=== PATIENT | female | born 1970 | race Caucasian/White ===

== ENCOUNTER 2023-12-21 14:12 | Emergency (ER) | payer OTHER, SELFPAY ==
[2023-12-21 14:43] VITALS: BP 130/79
--- NOTE | 2023-12-21 14:43 | ED.SKININJ ---
HPI-Injury
<Meghna Rodriguez BROTHEL KEEPER - Last Filed: 12/21/23 14:47>
General
Chief Complaint: Skin Surface Trauma
Time Seen by Provider: 12/21/23 15:52
<Bill Lea MD, Resident - Last Filed: 12/21/23 22:40>
General
Source: patient
Exam Limitations: none
Nursing documentation reviewed up to this point in time: agreed with
History of Present Illness-Injury
Is this injury a work related problem?: No
Is pt an associate of [facility]?: No
Initial Injury comments:
~2.7cm x 0.6cm - Retained Foreign Body (Clear Piece Of Glass)
Socializing at Neighbors backyard/Patio, while drinking/holding from a cup of glass
Complex Asymmetric Wound Margins With Minimal Variety in Depth
Ten(#10) - Simple Interrupted Sutures were placed
With - Two Monofilament-Permanent - Five'O Black Nylons Sutures
ED Provider Triage
<Meghna Rodriguez, BROTHEL KEEPER - Last Filed: 12/21/23 14:47>
-
Patient seen by provider in Triage?: Seen in Triage
Attestation: A medical screening examination has been initiated by a qualified medical provider. Based on the assessment performed at this time, it has been determined that an emergent medical condition may exist and the patient has been informed
that further medical evaluation and possible additional diagnostic testing may be needed.
HPI: 53-year-old female fell on her friend's back patio an hour ago, laceration to right hand and questionable foreign body in the wound. Unsure of last tetanus immunization
GENERAL: Alert , in no apparent distress
EYE: No visual abnormalities.
LUNGS: No acute respiratory distress
NEUROLOGICAL: Alert and oriented
SKIN: laceration proximal R palm. No visible changes.
MUSCULOSKELETAL: Full ROM hand and finger. Moving extremities normally
PSYCH: Normal and appropriate interaction.
This is a medical evaluation conducted in person to initiate diagnostic evaluation and provide initial therapeutics. Please see further documentation by the treating clinician.
Phy Exam
<Bill Lea MD, Resident - Last Filed: 12/21/23 22:40>
General Physical Exam
General Presentation: well appearing and moderate distress
General age: appears stated age
General Skin: mottled
General Habitus: normal
General Mental: alert
General Hydration: appears well hydrated
Neurological Exam
Neurological Exam: oriented x3, no motor deficits, no sensory deficits, speech normal and other (NO loss Motor or Sensory )
Musculoskeletal Exam
Musculoskeletal Exam: full ROM and neuro vasc intact
Skin Exam
Skin Exam: erythema, laceration, mottled, redness and tenderness
Course
<Meghna Rodriguez, BROTHEL KEEPER - Last Filed: 12/21/23 14:47>
Orders/Labs/Results
Orders:
Orders
12/21/23 14:43
Tetanus/Diphth/Acelpertussis [Adacel] 0.5 ml IM .ONCE ONE
12/21/23 14:45
Hand, Right 3 View [CR Hand - Right Min 3 Views] Urgent
Comment:
Reason For Exam: fall, lac prox palm, check for FB
12/21/23 17:34
Cephalexin Monohydrate [Keflex] 500 mg PO NOW STA
Vital Signs
Initial and Last Documented VS:
Initial Vital Signs
Temp Pulse Resp BP Pulse Ox
99.2 F 69 18 130/79 98
12/21/23 14:43 12/21/23 14:43 12/21/23 14:43 12/21/23 14:43 12/21/23 14:43
Last Documented Vital Signs
Temp Pulse Resp BP Pulse Ox
99.2 F 68 16 128/74 98
12/21/23 14:43 12/21/23 18:00 12/21/23 18:00 12/21/23 18:00 12/21/23 18:00
<Nabil Gutierrez MD - Last Filed: 12/23/23 15:13>
Orders/Labs/Results
Orders:
Orders
12/21/23 14:43
Tetanus/Diphth/Acelpertussis [Adacel] 0.5 ml IM .ONCE ONE
12/21/23 14:45
Hand, Right 3 View [CR Hand - Right Min 3 Views] Urgent
Comment:
Reason For Exam: fall, lac prox palm, check for FB
12/21/23 17:34
Cephalexin Monohydrate [Keflex] 500 mg PO NOW STA
Vital Signs
Initial and Last Documented VS:
Initial Vital Signs
Temp Pulse Resp BP Pulse Ox
99.2 F 69 18 130/79 98
12/21/23 14:43 12/21/23 14:43 12/21/23 14:43 12/21/23 14:43 12/21/23 14:43
Last Documented Vital Signs
Temp Pulse Resp BP Pulse Ox
99.2 F 68 16 128/74 98
12/21/23 14:43 12/21/23 18:00 12/21/23 18:00 12/21/23 18:00 12/21/23 18:00
<Bill Lea MD, Resident - Last Filed: 12/21/23 22:40>
Orders/Labs/Results
Orders:
Orders
12/21/23 14:43
Tetanus/Diphth/Acelpertussis [Adacel] 0.5 ml IM .ONCE ONE
12/21/23 14:45
Hand, Right 3 View [CR Hand - Right Min 3 Views] Urgent
Comment:
Reason For Exam: fall, lac prox palm, check for FB
12/21/23 17:34
Cephalexin Monohydrate [Keflex] 500 mg PO NOW STA
Vital Signs
Initial and Last Documented VS:
Initial Vital Signs
Temp Pulse Resp BP Pulse Ox
99.2 F 69 18 130/79 98
12/21/23 14:43 12/21/23 14:43 12/21/23 14:43 12/21/23 14:43 12/21/23 14:43
Last Documented Vital Signs
Temp Pulse Resp BP Pulse Ox
99.2 F 68 16 128/74 98
12/21/23 14:43 12/21/23 18:00 12/21/23 18:00 12/21/23 18:00 12/21/23 18:00
Procedures
<Bill Lea MD, Resident - Last Filed: 12/21/23 22:40>
Laceration Closure
Right Palmar Hand:
Status of Wound: dirty and imbedded foreign material (~2.7cm x 0.6cm - Piece Of Glass (Removed))
Size of Wound in cm: 3.4
Description of Wound Edges: macerated and other (Complex Asymmetric Wound Margins With Minimal Variety in Depth )
Preparation: cleaned with saline, cleaned with Betadine and other (Wound was Thoroughly Irrigated W. NS in its entireness & Subsequently PREP W. Two Betadine Sticks in a Sterile Medial to Lateral fashion )
Anesthesia: 2% Lidocaine with epi
Revision/Debridement: extensive revision, irrigate-direct pressure and other
Wound exploration: extensive cleaning of contaminated wound, explored to base- no FB, foreign body removed, all visible FB removed and no tendon involvement
Type of Closure: single layer closure and interrupted sutures (Ten/#10 - Simple Interrupted Sutures were placed / W. Two Monofilament/Permanent Five'O Nylons)
Skin Closure Material: 5-0 nylon
Number of sutures: 10
Additional information:
Ten/#10 - Simple Interrupted Sutures were placed / utilizing Two Monofilament-Permanent Five'O Nylons.
Foreign Body Removal-Skin
Wound explored and foreign body removed?: Yes
Anesthesia: 1%lidocaine w/epinephrine
Foreign body removed using: irrigation and forceps
Foreign body removed: completely
<Bill Lea MD, Resident - Last Filed: 12/21/23 22:40>
MDM/Problems Addressed
Differential Diagnosis Includes:
*R-Hand - Complex/Traumatic Laceration over the Lower/Lateral Aspect of the Palmar Surface-With Retained Foreign Body
Chronic conditions affecting care:
Previous R-Wrist Surgery in the setting of a previous fall
DM
Chronic conditions affecting care: DM, HTN, Psychiatric illness and Other (Previous R-Wrist Surgery in the setting of previous fall)
Acute Exacerbation and/or Progression of Chronic Illness:
N/A
<Bill Lea MD, Resident - Last Filed: 12/21/23 22:40>
*Critical Care Note
Total Time (30-74mins, 75-104mins- exclusive of procedures): 1 Hour 45 Minutes
ED Attending Note
<Meghna Rodriguez NP - Last Filed: 12/21/23 14:47>
-
Portions of this chart may have been created with voice recognition software.� Occasional wrong word or��sound alike� substitutions may have occurred due to the inherent limitations of voice recognition software.
<Nabil Gutierrez MD - Last Filed: 12/23/23 15:13>
ED Attending Note
Patient seen and examined by attending physician: Yes
ED Attending Note:
Patient presents to emergency department secondary to right hand laceration, which occurred shortly prior to arrival, when she fell down while holding a glass. The glass shattered in the process. Patient unsure if there is any foreign body.
Denies any other injuries. Patient unsure of her last tetanus vaccination.
Physical Exam
General: no apparent distress, not acutely ill. afebrile
Head: nc/at. eomi
Neck: supple. normal range of motion.
Neuro: alert and oriented. no focal neurological deficits
Skin: an approx 3 cm stellate laceration noted over palm of right hand, near thenar eminience. Tendon not visualized.
Psychiatric: well kept. interactive and cooperative
Extremities: no edema. no calf tenderness.
X-ray report reviewed. A piece of glass removed with use of forceps. Patient remains neurovascularly intact.
Tetanus updated.
Loose stitches provided for approximation and wrapped afterwards. Patient will be started on antibiotics prophylactically for 3 days, along with recommendation for PCP or hand surgeon follow-up as an outpatient, including suture removal in 7-10
days. Pt is otherwise neurovascularly intact, at time of discharge to the care of her spouse.
Discharge Plan
Departure
Patient Disposition: Home (Routine Discharge)
Date of Disposition: 12/21/23
Time of Disposition: 17:34
Patient with high blood pressure during this ER visit?: Yes
Condition: Good
Discharge Problem:
Laceration of hand, Foreign body in hand
Instructions: Laceration Repair With Stitches (DC), Removal of Foreign Body in Skin
Prescriptions:
New
cephalexin 500 mg capsule
500 mg PO Q8H Qty: 8 0RF
Referrals:
Melissa Moreno MD [Family Provider] -
Activity Restrictions/Additional Instructions:
As discussed, please follow-up with your primary care physician or hand surgeon for reevaluation, including suture removal in 7 to 10 days.
Interventions
Interventions:
*Risk Screen - Suicide Last Done: 12/21/23 14:43
*Neglect/Abuse Screening Last Done: 12/21/23 14:43
ED- Fall Risk Assessment Last Done: 12/21/23 17:19
*ED COVID-19 Vaccine History Last Done: 12/21/23 14:43
*Nursing Disposition Last Done: 12/21/23 18:16
ED-Skin Assessment Last Done: 12/21/23 17:19
Discharge Date and Time
Discharge Date/Time: 12/21/23 18:18
Print Language: ICELANDIC
[2023-12-21] MEDS: ADACEL 0.5 ML IM (16:00)
--- NOTE | 2023-12-21 16:42 | ED.GENMED ---
History of Present Illness
General
Chief Complaint: Skin Surface Trauma
Source: patient
Time Seen by Provider: 12/21/23 15:52
Nursing documentation reviewed up to this point in time: agreed with
Course
Orders/Labs/Results
Orders:
Orders
12/21/23 14:43
Tetanus/Diphth/Acelpertussis [Adacel] 0.5 ml IM .ONCE ONE
12/21/23 14:45
Hand, Right 3 View [CR Hand - Right Min 3 Views] Urgent
Comment:
Reason For Exam: fall, lac prox palm, check for FB
Vital Signs
Initial and Last Documented VS:
Initial Vital Signs
Temp Pulse Resp BP Pulse Ox
37.3 C 69 18 130/79 98
12/21/23 14:43 12/21/23 14:43 12/21/23 14:43 12/21/23 14:43 12/21/23 14:43
Last Documented Vital Signs
Temp Pulse Resp BP Pulse Ox
37.3 C 69 18 130/79 98
12/21/23 14:43 12/21/23 14:43 12/21/23 14:43 12/21/23 14:43 12/21/23 14:43
ED Attending Note
-
Portions of this chart may have been created with voice recognition software.� Occasional wrong word or��sound alike� substitutions may have occurred due to the inherent limitations of voice recognition software.
Discharge Plan
Interventions
Interventions:
*Risk Screen - Suicide Last Done: 12/21/23 14:43
*Neglect/Abuse Screening Last Done: 12/21/23 14:43
*ED COVID-19 Vaccine History Last Done: 12/21/23 14:43
Discharge Date and Time
Print Language: SAMI
[2023-12-21] MEDS: KEFLEX 500 MG PO (17:57)
[2023-12-21 18:00] VITALS: BP 128/74
== END 2023-12-21 18:18 | disposition home or self-care (01) ==
LOC: EMR 14:12
PROVIDERS: EMERGENCY PHYSICIAN Emergency Medicine; FAMILY PHYSICIAN Specialist
DX: S61.421A Laceration with foreign body of right hand, initial encounter (principal); W01.0XXA Fall on same level from slipping, tripping and stumbling without subsequent striking against object, initial encounter; Z23 Encounter for immunization
CPT/HCPCS: 99284; 10120; 90471; 73130; 90715